=== PATIENT | female | born 1975 | race Caucasian/White ===

== ENCOUNTER 2020-08-08 15:30 | Emergency (ER) | payer MEDICAID ==
[~2020-08-08] VITALS: Ht 160 cm; Wt 73.8 kg
--- NOTE | 2020-08-08 15:56 | NUR ---
PT AMBULATED TO ROOM FROM TRIAGE. PT STATED THAT SHE HAS A HISTORY OF REACTIVE ARTHRITIS AND HAS HAD PALPITATIONS ON AND OFF FOR 20 YEARS. PT STATED THAT THE PAST 5 DAYS SHES FEEL LIKE SHE HAS BEEN HAVING PALPITATIONS AND GETS PAIN IN HER RIGHT CHEST. PT STATED THAT SHE ALSO FEELS TINGLING IN HER BILATERAL ARMS/LEGS WHEN SHE FEELS THE PALPITATIONS. PT STATED THAT SHE CURRENTLY DOES NOT HAVE ANY CHEST PAIN OR SOB. PT DENIES ANY FEVER, N/V/D.
[2020-08-08 16:53] LABS: BASOPHILS % (AUTO) 1 % (0-1); EOSINOPHILS % (AUTO) 1 % (1-7); LYMPHOCYTES % (AUTO) 15 % (22-44); MEAN CORPUSCULAR HEMOGLOBIN 33.1 pg (27.0-34.8); MEAN CORPUSCULAR HGB CONC 34.4 g/dL (32.4-35.8); MEAN PLATELET VOLUME 7.7 fL (7.4-10.4); MONOCYTES % (AUTO) 4 % (2-9); NEUTROPHILS % (AUTO) 80 % (42-75); PLATELET COUNT 360 x10^3/uL (130-400); RED BLOOD COUNT 4.05 x10^6/uL (3.82-5.3); RED CELL DISTRIBUTION WIDTH 12.5 % (9.6-15.2)
[2020-08-08 16:57] LABS: MD NO
[2020-08-08 16:59] LABS: ALBUMIN 3.6 g/dL (3.4-5.0); ANION GAP 8 mmol/L (5-15); CALCIUM 9.1 mg/dL (8.5-10.1); CHLORIDE 109 mmol/L (98-107); CREATININE 0.69 mg/dL (0.55-1.02)
[2020-08-08 17:03] LABS: TROPONIN I < 0.015 ng/mL (0.000-0.045)
--- NOTE | 2020-08-08 17:09 | NUR ---
BREAK RN: MD DAWSON AT [facility]. PLAN FOR DC
[2020-08-08 17:24] VITALS: BP 113/73
--- NOTE | 2020-08-08 17:24 | NUR ---
BREAK RN: Patient given discharge instructions and they have confirmed that they understand the instructions. Patient ambulatory with steady gait.
== END 2020-08-08 17:26 | disposition home or self-care (01) ==
LOC: ED 17:20
DX: R07.2 Precordial pain (principal); R00.0 Tachycardia, unspecified; R06.02 Shortness of breath; R07.89 Other chest pain; M19.90 Unspecified osteoarthritis, unspecified site
CPT/HCPCS: 36415; 71045; 80048; 82040; 84484; 85025; 85379; 93005; 99285

== ENCOUNTER 2020-08-08 23:35 | Emergency (ER) | payer MEDICAID ==
[~2020-08-08] VITALS: Ht 162.6 cm; Wt 90.0 kg
[2020-08-08] MEDS ORDERED: FLUORESCEIN OPHTHALMIC 1 MG STRIP ONE (23:46)
[2020-08-08] MEDS ORDERED: PROPARACAINE OPHTH 0.5%, 15ML ONE (23:46)
--- NOTE | 2020-08-09 00:41 | NUR ---
PT COMPLAINING OF PAIN. PT SEEN HERE EARLIER FOR A DIFFERENT COMPLAINT. PT WANT TO TALK TO MD BEFORE DISCHARGE. MD UPDATED
[2020-08-09 00:46] VITALS: BP 141/82
--- NOTE | 2020-08-09 00:54 | NUR ---
Patient given discharge instructions and they have confirmed that they understand the instructions. Patient ambulatory with steady gait.
== END 2020-08-09 00:56 | disposition home or self-care (01) ==
LOC: ED 08-09 00:06
DX: S05.02XA Injury of conjunctiva and corneal abrasion without foreign body, left eye, initial encounter (principal); Z79.82 Long term (current) use of aspirin; X58.XXXA Exposure to other specified factors, initial encounter; Y93.89 Activity, other specified; Y92.89 Other specified places as the place of occurrence of the external cause; Y99.8 Other external cause status
CPT/HCPCS: 99283